=== PATIENT | female | born 1980 | race Caucasian/White ===

== ENCOUNTER 2017-04-01 14:50 | Outpatient (CLI) | payer OTHER ==
[~2017-04-01 14:50] MED LIST: ATARAX,VISTARIL50 MG PO
[2017-04-01 15:33] VITALS: BP 144/79
[2017-04-01 16:04] VITALS: BP 131/72
[2017-04-01 16:34] VITALS: BP 131/66
[2017-04-01] MEDS ORDERED: PRENATAL TABLE1 EAC3 PO (16:38)
[2017-04-01] MEDS ORDERED: GLYBURIDE5 MG PO (16:39)
[2017-04-01] MEDS ORDERED: PROBIOTIC1 EAC1 PO (16:40)
== END 2017-04-01 17:15 | disposition home or self-care (01) ==
LOC: LDRP-OP → 2WEST 14:51 → LDRP-OP 05-22 19:43
DX: O36.8130 Decreased fetal movements, third trimester, not applicable or unspecified (principal); O24.415 Gestational diabetes mellitus in pregnancy, controlled by oral hypoglycemic drugs; Z3A.37 37 weeks gestation of pregnancy; O34.219 Maternal care for unspecified type scar from previous cesarean delivery
CPT/HCPCS: 59025; G0378

== ENCOUNTER 2017-04-12 05:09 | Inpatient (IN) | payer OTHER ==
[2017-04-12] VITALS (8 sets, daily range): BP systolic 96–140; BP diastolic 54–89
[~2017-04-12] VITALS: Ht 172.7 cm; Wt 130.6 kg
[~2017-04-12 05:09] MED LIST changes: +GLYBURIDE5 MG PO; +PRENATAL TABLE1 EAC3 PO; +PROBIOTIC1 EAC1 PO
[2017-04-12 07:21] LABS: EOSINOPHIL (%) 0.5 % (0-5); HEMATOCRIT 43.1 % (36.0-46.0); IMMATURE GRANULOCYTE (%) 0.7 % (0.0-0.7); IMMATURE GRANULOCYTE COUNT 0.1 K/uL; INSTRUMENT ABS NEUTROPHIL CT 4.9 K/uL; LYMPHOCYTE COUNT 2.1 K/uL (1.0-2.8); MCH 29.2 PG (29.0-34.0); MCHC 33.2 G/DL (30.0-36.0); MCV 88.1 FL (83-99); MEAN PLAT.VOLUME 10.5 uM^3 (9.5-12.4); MONOCYTE (%) 6.4 % (3-12); MONOCYTE COUNT 0.5 K/uL (0-0.8); NEUTROPHIL (%) 64.1 % (45-76); NEUTROPHIL COUNT 4.9 K/uL (1.8-6.4); PLATELET COUNT 164 K/uL (156-360); RBC DIS.WIDTH-CV 14.9 % (11.8-14.6); RBC DIS.WIDTH-SD 48.2 % (39-53); RED BLOOD COUNT 4.89 M/uL (3.80-5.20); WHITE BLOOD COUNT 7.6 K/uL (4.1-10.2)
[2017-04-12 07:51] LABS: ANION GAP 14 MEQ/L (2-14); CHLORIDE 104 MEQ/L (99-109); GFR ESTIMATE (CALCULATED) > 59 mL/min/; GLUCOSE 83 mg/dL (70-99); POTASSIUM 3.9 MEQ/L (3.7-5.4); SAMPLE HEMOLYSIS CHECK 0; SAMPLE ICTERIC CHECK 0; SAMPLE LIPEMIA CHECK 0; SODIUM 136 MEQ/L (136-147); UREA NITROGEN (BUN) 11 mg/dL (9-23)
[2017-04-12 10:19] LABS: POINT-OF-CARE METER ID UU13113675
[2017-04-12 11:28] LABS: POINT-OF-CARE METER ID UU13113692
[2017-04-12 14:44] LABS: POINT-OF-CARE METER ID UU13113801
[2017-04-12 21:00] LABS: POINT-OF-CARE METER ID UU13113692
[2017-04-13 03:00] VITALS: BP 123/58
[2017-04-13 06:46] LABS: POINT-OF-CARE METER ID UU13113692
[2017-04-13 07:34] LABS: EOSINOPHIL (%) 0.6 % (0-5); EOSINOPHIL COUNT 0.1 K/uL (0-0.3); HEMATOCRIT 34.3 % (36.0-46.0); IMMATURE GRANULOCYTE (%) 0.7 % (0.0-0.7); IMMATURE GRANULOCYTE COUNT 0.1 K/uL; INSTRUMENT ABS NEUTROPHIL CT 6.4 K/uL; LYMPHOCYTE COUNT 2.8 K/uL (1.0-2.8); MCH 29.3 PG (29.0-34.0); MCHC 32.7 G/DL (30.0-36.0); MCV 89.8 FL (83-99); MEAN PLAT.VOLUME 9.9 uM^3 (9.5-12.4); MONOCYTE (%) 5.3 % (3-12); MONOCYTE COUNT 0.5 K/uL (0-0.8); NEUTROPHIL (%) 64.9 % (45-76); NEUTROPHIL COUNT 6.4 K/uL (1.8-6.4); PLATELET COUNT 128 K/uL (156-360); RBC DIS.WIDTH-CV 15.2 % (11.8-14.6); RBC DIS.WIDTH-SD 49.2 % (39-53); RED BLOOD COUNT 3.82 M/uL (3.80-5.20); WHITE BLOOD COUNT 9.9 K/uL (4.1-10.2)
[2017-04-13 07:46] VITALS: BP 128/70
[2017-04-13 10:06] LABS: POINT-OF-CARE METER ID UU13113692
[2017-04-13 11:33] VITALS: BP 122/67
[2017-04-13 14:42] LABS: POINT-OF-CARE METER ID UU13113692
[2017-04-13 15:00] VITALS: BP 133/71
[2017-04-13 19:23] LABS: POINT-OF-CARE METER ID UU13113692
[2017-04-13 19:40] VITALS: BP 137/74
[2017-04-13 23:00] VITALS: BP 106/55
[2017-04-14 03:00] VITALS: BP 124/65
[2017-04-14 07:01] LABS: POINT-OF-CARE METER ID UU13113692
[2017-04-14 07:37] VITALS: BP 126/77
[2017-04-14 11:47] VITALS: BP 146/82
[2017-04-14 15:24] VITALS: BP 131/75
[2017-04-14 22:17] VITALS: BP 137/77
[2017-04-15 00:39] VITALS: BP 139/81
[2017-04-15 04:00] VITALS: BP 139/82
[2017-04-15 07:23] VITALS: BP 119/64
[2017-04-15] MEDS ORDERED: IBUPROFEN800 MG PO (14:25)
[2017-04-15] MEDS ORDERED: ENDOCET 5-3251 EACH PO (14:25)
[2017-04-15 14:33] VITALS: BP 140/76
[2017-04-15 14:50] VITALS: BP 145/94
[2017-04-15 16:24] VITALS: BP 144/74
== END 2017-04-15 17:15 | disposition home or self-care (01) | DRG 766 ==
LOC: 2WEST 05:09 → 2SOUTH 10:46 → 2WEST 04-15 17:15
PROVIDERS: Obstetrics & Gynecology
PROC: 10D00Z1 Extraction of Products of Conception, Low, Open Approach (ICD-10-PCS; principal; 2017-04-12)
DX: O34.219 Maternal care for unspecified type scar from previous cesarean delivery (principal); O69.81X0 Labor and delivery complicated by cord around neck, without compression, not applicable or unspecified; O24.425 Gestational diabetes mellitus in childbirth, controlled by oral hypoglycemic drugs; O99.214 Obesity complicating childbirth; E66.9 Obesity, unspecified; O26.03 Excessive weight gain in pregnancy, third trimester; Z68.33 Body mass index [BMI] 33.0-33.9, adult; Z3A.38 38 weeks gestation of pregnancy; Z37.0 Single live birth
CPT/HCPCS: 80048; 82948; 85025; 86900; 86901; 88307; 93005; J0690; J1100; J1815; J2274; J2405; J7120